=== PATIENT | female | born 1980 | race Caucasian/White ===

== ENCOUNTER 2018-03-16 06:45 | Emergency (ER) | payer BC ==
[~2018-03-16] VITALS: Ht 165.1 cm; Wt 127.3 kg
[2018-03-16] MEDS ORDERED: PANT40TA3 (06:56)
[2018-03-16] MEDS ORDERED: RANI300T (06:56)
[2018-03-16] MEDS ORDERED: ATOR1TAB19 (06:56)
[2018-03-16] MEDS ORDERED: ELIQ5TAB (06:56)
[2018-03-16] MEDS ORDERED: POTA20TA6 (06:56)
[2018-03-16] MEDS ORDERED: VITA50005 (06:56)
[2018-03-16] MEDS ORDERED: AMLO5TAB6 (06:56)
[2018-03-16] MEDS ORDERED: ALPR0.5T3 (06:56)
[2018-03-16] MEDS ORDERED: FURO20TA2 (06:56)
[2018-03-16] MEDS ORDERED: ONDANSETRON 4MG/2ML VIAL (J2405) IV ONE (07:30)
[2018-03-16] MEDS ORDERED: NS 1,000 ML IV ONE (07:30)
[2018-03-16] MEDS ORDERED: MORPHINE 4 MG/ML 1ML VIAL/SYRINGE (J2270) IV PRN (07:30)
[2018-03-16 08:16] LABS: BASO % 0.4 % (0.0-1.0); EOS # 0.1 10^3/uL (0.0-0.50); EOS % 0.7 % (0.0-3.0); HEMATOCRIT 39.6 % (36.0-47.0); HEMOGLOBIN 13.1 g/dl (12.0-15.5); LYMPH # 1.5 10^3/uL (1.5-4.5); LYMPH % 18.2 % (24.0-44.0); MEAN CORPUSCULAR HEMOGLOBIN 27.5 pg (27.0-33.0); MEAN CORPUSCULAR HGB CONC 33.1 g/dl (32.0-36.5); MONO # 0.6 10^3/uL (0.0-0.8); MONO % 6.5 % (0.0-5.0); NEUTROPHILS # 6.2 10^3/uL (1.8-7.7); PLATELET COUNT, AUTOMATED 202 10^3/uL (150-450); RED BLOOD COUNT 4.77 10^6/uL (4.00-5.40); WHITE BLOOD COUNT 8.4 10^3/uL (4.0-10.0)
[2018-03-16 08:29] LABS: INR 1.15; PROTHROMBIN TIME 14.8 SECONDS (12.1-14.4)
[2018-03-16 08:30] LABS: PARTIAL THROMBOPLASTIN TIME 32.7 SECONDS (25.4-37.6)
[2018-03-16 08:45] LABS: ALBUMIN 3.5 GM/DL (3.2-5.2); ALT/SGPT 20 U/L (12-78); AMYLASE 47 U/L (25-115); BILIRUBIN,DIRECT 0.2 MG/DL (0.0-0.2); BILIRUBIN,TOTAL 0.9 MG/DL (0.2-1.0); BLOOD UREA NITROGEN 10 MG/DL (7-18); CALCIUM LEVEL 8.8 MG/DL (8.5-10.1); CARBON DIOXIDE LEVEL 23 MEQ/L (21-32); CHLORIDE LEVEL 108 MEQ/L (98-107); CREATININE FOR GFR 0.74 MG/DL (0.55-1.30); GLOMERULAR FILTRATION RATE > 60.0 (>60); GLUCOSE, FASTING 108 MG/DL (70-100); LIPASE 61 U/L (73-393); POTASSIUM SERUM 3.3 MEQ/L (3.5-5.1); SODIUM LEVEL 140 MEQ/L (136-145); TOTAL PROTEIN 7.8 GM/DL (6.4-8.2)
[2018-03-16 08:48] LABS: HCG, SERUM QUALITATIVE NEGATIVE (NEGATIVE)
[2018-03-16] MEDS ORDERED: ISOVUE-370 76% 100ML VIAL (Q9967) As Ordered ONE (09:18)
--- NOTE | 2018-03-16 09:58 | REP ---
CT ABDOMEN AND PELVIS WITH IV CONTRAST: HISTORY: Abdomen pain. History of aortic graft. No comparison CT study. Comparison abdominal radiographs are from December 23, 2015. CT CONTRAST DOSE: 100 mL of intravenous Isovue 370 is administered. FINDINGS: Preliminary digital oven stripper radiograph demonstrates an unremarkable bowel gas pattern. There is minimal linear fibrosis in the lung bases. There is mild diffuse fatty infiltration of the liver. No gallbladder abnormality is seen. No focal hepatic or splenic lesion is seen. No adrenal abnormality is observed. The pancreas is unremarkable. Kidneys enhance symmetrically and are morphologically intact. There is an aortobifemoral graft in place which is patent. The [place] aorta is occluded. The iliacs are reconstituted at the level of the common iliac bifurcation. Both external and both internal iliacs are perfused via collateral flow or retrograde radiographs. No periaortic hematoma is seen. There is mild narrowing of the aorta just above the graft. The celiac and superior mesenteric axis and the renal arteries are widely patent and above the graft site. No abdominal wall defect is seen. Small and large intestinal bowel loops are normal in appearance. Normal appendix is seen. No bony destructive lesion is seen. IMPRESSION: Status post aortobifemoral graft for aortic occlusion. Mild fatty infiltration of the liver. Otherwise negative CT study abdomen and pelvis. Electronically Signed by Ender Quiros MD 03/16/2018 10:47 A
[2018-03-16] MEDS ORDERED: ONDA4TAB6 PO (10:13)
[2018-03-16 10:18] VITALS: BP 123/58
== END 2018-03-16 10:30 | disposition home or self-care (01) ==
LOC: M ED 06:45
DX: A08.4 Viral intestinal infection, unspecified (principal); K76.0 Fatty (change of) liver, not elsewhere classified; K44.9 Diaphragmatic hernia without obstruction or gangrene; I10 Essential (primary) hypertension; K21.9 Gastro-esophageal reflux disease without esophagitis; Z86.711 Personal history of pulmonary embolism; Z79.899 Other long term (current) drug therapy; Z79.01 Long term (current) use of anticoagulants
CPT/HCPCS: 74177; 80048; 80076; 81001; 82150; 83690; 84703; 85025; 85610; 85730; 96361; 96374; 96375; 99284; J2270; J2405; Q9967